=== PATIENT | female | born 1960 | race Caucasian/White ===

== ENCOUNTER 2016-09-21 10:46 | Emergency (ER) | payer MEDICARE, OTHER ==
[2016-09-21 10:51] VITALS: RESP 17
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
[2016-09-21] MEDS ORDERED: ACETAMINOPHEN TAB 500 MG TAB PO STA (12:19)
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
[2016-09-21 12:51] VITALS: BP 147/84; PULSE 78; TEMP 97.7
== END 2016-09-21 12:50 | disposition home or self-care (01) ==
LOC: EC 10:46
DX: S09.90XA Unspecified injury of head, initial encounter (principal); Z79.82 Long term (current) use of aspirin; Z88.5 Allergy status to narcotic agent; W20.8XXA Other cause of strike by thrown, projected or falling object, initial encounter; Y93.55 Activity, bike riding
CPT/HCPCS: 70450; 99283

== ENCOUNTER → 2016-10-10 | Outpatient (CLI) | payer MEDICARE, OTHER ==
--- NOTE | 2016-10-11 07:19 | XR ---
EXAMINATION TYPE: XR cervical spine comp , 5 VIEWS DATE OF EXAM ORDERED: 10/10/2016 HISTORY: M54.2 Cervical spine pain. COMPARISON: None. FINDINGS: Vertebral body height and alignment are maintained. Atlantoaxial relationships are normal. There is disc space loss and hypertrophic spondylosis at C4-5, C5-6 and C6-7. There is mild uncovert ebral joint disease present at these levels. Intervertebral foramina are reasonably well-maintained. Prevertebral soft tissues are normal. IMPRESSION: 1. NO ACUTE OSSEOUS LESION. 2. DEGENERATIVE CHANGE.
--- NOTE | 2016-10-11 07:39 | XR ---
Right RIBS HISTORY: Rib pain, R07.9 4 views of the right ribs No comparisons Bone mineralization is maintained. No pneumothorax or pleural effusion. Somewhat truncated appearance of the distal 12th rib could be indicative of a fracture. No other evident displaced rib fracture. IMPRESSION: Difficult to exclude distal 12th rib fracture. Bone scan could be performed for increased sensitivity as.
== END | disposition home or self-care (01) ==
LOC: RADXRMAIN 16:23
PROVIDERS: ATTEND Family Medicine
DX: M47.812 Spondylosis without myelopathy or radiculopathy, cervical region (principal); R07.9 Chest pain, unspecified
CPT/HCPCS: 72050

== ENCOUNTER → 2017-03-23 | Outpatient (CLI) | payer MEDICARE, OTHER ==
--- NOTE | 2017-03-23 13:42 | MM ---
Reason for exam: additional evaluation requested from prior study. Last mammogram was performed 1 year and 5 months ago. History: Patient is postmenopausal and is nulliparous. Physical Findings: Nurse did not find any significant physical abnormalities on exam. MG 3D Diag Mammo W/Cad CHATO Bilateral CC and MLO view(s) were taken. Prior study comparison: October 14, 2015, left breast MG 3d work up w/cad LT. October 06, 2015, bilateral MG 3d screening mammo w/cad. There are scattered fibroglandular densities. There is no discrete abnormality including area of concern. No significant new findings when compared with previous films. These results were verbally communicated with the patient and result sheet given to the patient on 03/23/17. ASSESSMENT: Negative, BI-RAD 1 RECOMMENDATION: Routine screening mammogram of both breasts in 1 year.
== END | disposition home or self-care (01) ==
LOC: RADMAMWWP 12:30
PROVIDERS: ATTEND Family Medicine
DX: R92.8 Other abnormal and inconclusive findings on diagnostic imaging of breast (principal)
CPT/HCPCS: 77066; G0279

== ENCOUNTER → 2017-05-10 | Outpatient (CLI) | payer MEDICARE, OTHER ==
--- NOTE | 2017-05-11 07:05 | US ---
EXAMINATION TYPE: US kidneys/renal and bladder DATE OF EXAM: 05/10/2017 COMPARISON: NONE CLINICAL HISTORY: Cystic Kidney Disease Q61.9. EXAM MEASUREMENTS: Right Kidney: 9.1 x 3.5 x 4.6 cm Left Kidney: 9.9 x 4.5 x5.6 cm Post Void Residual Volume: 5.3 mL Right Kidney: No hydronephrosis or masses seen Left Kidney: No hydronephrosis or masses seen Bladder: wnl Bilateral Jets seen: Yes Normal Post Void Residual: Yes There is no evidence for hydronephrosis at this point in time. No nephrolithiasis is seen. No akash s are identified. The urinary bladder is anechoic. Bilateral ureteral jets are seen. IMPRESSION: Unremarkable exam with no solid or cystic renal mass is identified. No hydronephrosis or nephrolithia sis.
== END | disposition home or self-care (01) ==
LOC: RADUSWWP 16:30
PROVIDERS: ATTEND Family Medicine
DX: Q31.9 Congenital malformation of larynx, unspecified (principal)
CPT/HCPCS: 76770

== ENCOUNTER → 2018-05-16 | Outpatient (CLI) | payer MEDICARE, OTHER ==
--- NOTE | 2018-05-16 15:41 | XR ---
EXAMINATION TYPE: XR nasal bone DATE OF EXAM: 05/16/2018 COMPARISON: NONE HISTORY: Pain TECHNIQUE: 3 views are submitted FINDINGS: There is mucosal thickening involving the maxillary sinuses. Nasal bridge intact. Ethmoidal plate appears intact. Maxillary styloid intact. IMPRESSION: No evidence to suggest fracture. Changes of chronic sinusitis noted.
== END | disposition home or self-care (01) ==
LOC: RADXRMAIN 14:46
PROVIDERS: ATTEND Family Medicine
DX: J32.9 Chronic sinusitis, unspecified (principal)
CPT/HCPCS: 70160

== ENCOUNTER → 2020-02-05 | Outpatient (CLI) | payer MEDICARE, OTHER ==
--- NOTE | 2020-02-06 11:58 | ECHOF ---
Referral Reason:R94.31 abnormal EKG MEASUREMENTS -------- HEIGHT: 160.0 cm WEIGHT: 103.0 kg BP: RVIDd: 2.0 cm (< 3.3) IVSd: 1.3 cm (0.6 - 1.1) LVIDd: 3.8 cm (3.9 - 5.3) LVPWd: 1.1 cm (0.6 - 1.1) IVSs: 1.4 cm LVIDs: 2.8 cm LVPWs: 1.4 cm LA Diam: 3.4 cm (2.7 - 3.8) Ao Diam: 3.1 cm (2.0 - 3.7) AV Cusp: 2.4 cm (1.5 - 2.6) MV EXCURSION: 13.536 mm (> 18.000) MV EF SLOPE: 71 mm/s (70 - 150) EPSS: 0.3 cm MV E Mundo: 0.62 m/s MV DecT: 188 ms MV A Mundo: 1.00 m/s MV E/A Ratio: 0.61 RAP: 5.00 mmHg RVSP: 18.28 mmHg FINDINGS -------- Sinus rhythm. This was a technically adequate study. The left ventricular size is normal. There is mild concentric left ventricular hypertrophy. Overa ll left ventricular systolic function is low-normal with, an EF between 50 - 55 %. The right ventricle is normal in size. The left atrial size is normal. The right atrial size is normal. There is mild aortic valve sclerosis. There is no evidence of aortic regurgitation. Mild mitral annular calcification present. Mild mitral regurgitation is present. Mild tricuspid regurgitation present. Right ventricular systolic pressure is normal at < 35 mmHg. There is no pulmonic regurgitation present. The aortic root size is normal. Echo free space represents a pericardial fat pad. CONCLUSIONS -------- 1. The left ventricular size is normal. 2. There is mild concentric left ventricular hypertrophy. 3. Overall left ventricular systolic function is low-normal with, an EF between 50 - 55 %. 4. The right ventricle is normal in size. 5. The left atrial size is normal. 6. The right atrial size is normal. 7. There is mild aortic valve sclerosis. 8. Mild mitral annular calcification present. 9. Mild mitral regurgitation is present. 10. Mild tricuspid regurgitation present. 11. There is no pulmonic regurgitation present. 12. The aortic root size is normal. 13. Echo free space represents a pericardial fat pad. NEGATIVE CUTTER: Sharonda Ram RDCS
== END | disposition home or self-care (01) ==
LOC: RADECHMAIN 13:38
PROVIDERS: ATTEND Family Medicine
DX: I08.1 Rheumatic disorders of both mitral and tricuspid valves (principal)
CPT/HCPCS: 93306

== ENCOUNTER → 2022-11-01 | Outpatient (CLI) | payer MEDICARE, OTHER ==
--- NOTE | 2022-11-02 07:23 | MM ---
Reason for Exam: Screening (asymptomatic). Last mammogram was performed 5 year(s) and 7 month(s) ago. Patient History: Menarche at age 11. Patient has no children. Postmenopausal. Risk Values: Leena 5 year model risk: 1.7%. NCI Lifetime model risk: 7.4%. Prior Study Comparison: 10/06/2015 Bilateral Screening Mammogram, [facility]. 10/14/2015 Left Diagnostic Mammogram, [facility]. 03/23/2017 Bilateral Diagnostic Mammogram, [facility]. Tissue Density: There are scattered fibroglandular densities. Findings: Analyzed By CAD. There is no suspicious group of microcalcifications or new suspicious mass in either breast. Overall Assessment: Negative, BI-RAD 1 Management: Screening Mammogram of both breasts in [address] [facility] will attempt to contact patient to return for supplemental views and ultrasound if indicated. Patient should continue monthly self-breast exams. A clinical breast exam by your physician is recommended on an annual basis. This exam should not preclude additional follow-up of suspicious palpable abnormalities. Note on Leena scores and lifetime risk: 1. A Leena score greater than 3% is considered moderate risk. If this is the case, consider specialist referral to assess eligibility for a risk reducing agent. 2. If overall lifetime risk for the development of breast cancer is 20% or higher, the patient may qualify for future screening with alternating mammogram and breast MRI. Electronically signed and approved by: Jameson Agarwal DO
== END | disposition home or self-care (01) ==
LOC: RADMAMWWP 14:02
PROVIDERS: ATTEND Family Medicine
DX: Z12.31 Encounter for screening mammogram for malignant neoplasm of breast (principal); Z78.0 Asymptomatic menopausal state
CPT/HCPCS: 77063; 77067

== ENCOUNTER 2024-06-18 16:29 | Emergency (ER) | payer MEDICARE, OTHER ==
[2024-06-18 17:19] LABS: Basophils % (A) 1 %; Eosinophils # (A) 0.2 k/uL (0-0.7); Eosinophils % (A) 2 %; HCT 46.2 % (34.0-46.0); HGB 14.9 gm/dL (11.4-16.0); Lymphocytes # (A) 2.1 k/uL (1.0-4.8); Lymphocytes % (A) 34 %; MCH 29.7 pg (25.0-35.0); MCHC 32.2 g/dL (31.0-37.0); MCV 92.1 fL (80.0-100.0); Mean Platelet Volume 7.5; Monocytes # (A) 0.6 k/uL (0-1.0); Monocytes % (A) 9 %; Neutrophils # (A) 3.3 k/uL (1.3-7.7); Neutrophils % (A) 52 %; Platelet Count 321 k/uL (150-450); RBC 5.02 m/uL (3.80-5.40); RDW 13.2 % (11.5-15.5); WBC 6.4 k/uL (3.8-10.6)
[2024-06-18] MEDS: SODIUM CHLORIDE 0.9% 1,000 ML IV STA (17:21)
[2024-06-18 17:31] LABS: ALT 19 U/L (4-34); AST 20 U/L (14-36); African American GFR (CKD) 65 (>60 ml/min/1.73 sqM); Alkaline Phosphatase 79 U/L (38-126); Anion Gap 9 mmol/L; Blood Urea Nitrogen 16 mg/dL (7-17); Carbon Dioxide 23 mmol/L (22-30); Chloride 105 mmol/L (98-107); Creatine Kinase 51 U/L (30-135); Glucose 112 mg/dL (74-99); Non-African American GFR(CKD) 57 (>60 ml/min/1.73 sqM); Potassium 4.1 mmol/L (3.5-5.1); Sodium 137 mmol/L (137-145); Total Bilirubin 0.5 mg/dL (0.2-1.3); Total Protein 6.9 g/dL (6.3-8.2)
--- NOTE | 2024-06-18 18:36 | CT ---
EXAMINATION TYPE: CT brain wo con DATE OF EXAM: 06/18/2024 COMPARISON: CT brain September 21, 2016 CLINICAL INDICATION: Female, 64 years old with history of Neuro deficit, acute, stroke suspected, Per EMS pt called with c/o speech impairment. Pt states that she had speech difficulty x30 minutes at [facility] before she was able to call 911. Pt denies SOB, chest pains or any weakness. TECHNIQUE: CT scan of the head is performed without contrast. CT DLP: 1130 mGycm. Automated Exposure Control for Dose Reduction was Utilized. FINDINGS: There is 2.5 x 1.6 cm oval hyperdense area in the periphery near the right frontoparietal j unction coronal image 36. There is some hypodensity in the surrounding tissue extending medially and posteriorly. Local mass effect is present. No midline shift. No hydrocephalus. Soft tissue density consistent with cerumen is redemonstrated in bilateral external auditory canals there are 2 small muc ous retention cysts or polyps in the bilateral maxillary sinuses measuring up to 11 mm. The globes ar e intact bilaterally. IMPRESSION: There is 2.5 cm area of acute hemorrhage or hemorrhagic mass in the peripheral posterior aspect right frontal lobe. Clinical correlation and short-term follow-up imaging is advised to [facility] evaluate. Critical results communicated to ordering emergency room physician by phone call at time of dictation . [facility], , 06/18/2024 6:34 PM
--- NOTE | 2024-06-18 18:54 | XR ---
EXAMINATION TYPE: XR chest 2V DATE OF EXAM: 06/18/2024 CLINICAL INDICATION: Female, 64 years old with history of altered mental status, TECHNIQUE: Frontal and lateral views of the chest are obtained. COMPARISON: None FINDINGS: There is no focal air space opacity, pleural effusion, or pneumothorax seen. The cardiac silhouette size is mildly enlarged. Overlying EKG leads are present. Multilevel spurring in the thora cic spine is seen. IMPRESSION: Mild cardiomegaly without acute pulmonary process. [facility], , 06/18/2024 6:51 PM
--- NOTE | 2024-06-18 19:03 | CT ---
EXAMINATION TYPE: CT angio head neck DATE OF EXAM: 06/18/2024 COMPARISON: NONE CLINICAL INDICATION: Female, 64 years old with history of Neuro deficit, acute, stroke suspected, Per EMS pt called with c/o speech impairment. Pt states that she had speech difficulty x30 minutes at [facility] before she was able to call 911. Pt denies SOB, chest pains or any weakness., TECHNIQUE: CTA scan of the head and neck is performed with IV Contrast, patient injected with 65 ml mL of Isovue 370, axial images are obtained, coronal and sagittal reformatted images are reviewed. 3D reconstructed images are created on an independent workstation and reviewed. NASCET criteria was use d in interpretation of this exam? CT DLP: 469.1 mGycm. Automated Exposure Control for Dose Reduction was Utilized. FINDINGS: Vertebral arteries: The vertebral arteries are patent. Vertebral artery dominance: Codominant Basilar artery: The basilar artery is intact. Hypoplastic left P1 segment with filling of the P2 segm ent due to patent left-sided posterior commuting artery. Internal Carotid arteries: The cervical, petrous, cavernous and supraclinoid segments are normal. DORETHA: Hypoplastic left A1 segment filling of the left A2 segment due to patent anterior communicating artery. ACOM: Present without evidence of aneurysm. MCA: Patent with no evidence of aneurysm. Dural sinuses: Patent. CTA NECK: Right Carotid System: The common carotid artery and external carotid artery are patent. The carotid bifurcation demonstrate s no evidence of hemodynamically significant stenosis. The remaining portions of the internal carotid artery demonstrate normal size without significant narrowing. Left Carotid System: The common carotid artery and external carotid artery are patent. The carotid bifurcation demonstrate s no evidence of hemodynamically significant stenosis. The remaining portions of the internal carotid artery demonstrate normal size without significant narrowing. Vertebral arteries are patent without evidence hemodynamically significant stenosis. There is a three-vessel aortic arch. The origins of the great vessels are patent. No evidence of hemo dynamically significant stenosis. Large anterior osteophytes including bridging osteophytes at C5-C6 level are noted. There are small h ypodense thyroid nodules bilaterally. Advise nonemergent thyroid ultrasound to further evaluate if th is is not known finding. IMPRESSION: No evidence of dissection of the cervical internal carotid arteries or vertebral arteries. No any evidence of significant stenosis at the carotid bifurcations. No evidence of large vessel occlusion or intracranial aneurysm. [facility], , 06/18/2024 7:01 PM
--- NOTE | 2024-06-18 19:34 | ED ---
General Adult HPI - General Chief complaint: Neuro Symptoms/Deficit Stated complaint: syncope Time Seen by Provider: 06/18/24 16:40 Source: patient, EMS Mode of arrival: EMS Limitations: no limitations - History of Present Illness Initial comments: 64-year-old female with past medical history of TIA in 2010 who presents to the emergency department reporting expressive aphasia. States that she was at home when she had approximately 30 minutes of difficulty speaking. She then called EMS and before their arrival her speech had resolved. She denies having any weakness, numbness or tingling in her extremities. No visual disturbance. Randy es any headaches. No numbness, tingling or weakness in her extremities. No report of any trauma. Patient does not take any blood thinners. Patient arrives to the hospital and feels back to her baseline. She denies any chest pain, abdominal pain. No changes in her bowel or bladder habits. No other alleviating, precipitating or modifying factors - Related Data Home Medications Medication Instructions Recorded Confirmed Aspirin [Adult Low Dose Aspirin EC] 81 mg PO HS 07/22/15 07/22/15 Previous Rx's Medication Instructions Recorded Amoxicillin/Potassium Clav 1 each PO Q12HR #20 tab 07/22/15 [Augmentin 875-125 Tablet] Ciprofloxacin-Hc Otic Susp [Cipro 3 drops LEFT EAR BID 10 Days ml 07/22/15 Hc Otic Suspension] Acetaminophen Tab [Tylenol Tab] 650 mg PO Q6H #20 tablet 09/21/16 Allergies Allergy/AdvReac Type Severity Reaction Status Date / Time codeine AdvReac Rapid Verified 06/18/24 16:40 Heart Rate Review of Systems ROS Statement: Those systems with pertinent positive or pertinent negative responses have been documented in the HPI. ROS Other: All systems not noted in ROS Statement are negative. Past Medical History Past Medical History: CVA/TIA Additional Past Medical History / Comment(s): TIA 2010 History of Any Multi-Drug Resistant Organisms: None Reported Past Surgical History: No Surgical Hx Reported Past Psychological History: No Psychological Hx Reported Smoking Status: Never smoker Past Alcohol Use History: None Reported Past Drug Use History: None Reported General Exam Limitations: no limitations General appearance: alert, in no apparent distress Head exam: Present: atraumatic, normocephalic, normal inspection Eye exam: Present: normal appearance, PERRL, EOMI. Absent: scleral icterus, conjunctival injection, periorbital swelling ENT exam: Present: normal exam, mucous membranes moist Neck exam: Present: normal inspection. Absent: tenderness, meningismus, lymphadenopathy Respiratory exam: Present: normal lung sounds bilaterally. Absent: respiratory distress, wheezes, rales, rhonchi, stridor Cardiovascular Exam: Present: regular rate, normal rhythm, normal heart sounds. Absent: systolic murmur, diastolic murmur, rubs, gallop, clicks GI/Abdominal exam: Present: soft, normal bowel sounds. Absent: distended, tenderness, guarding, rebound, rigid Extremities exam: Present: normal inspection, full ROM, normal capillary refill. Absent: tenderness, pedal edema, joint swelling, calf tenderness Back exam: Present: normal inspection Neurological exam: Present: alert, oriented X3, CN II-XII intact Psychiatric exam: Present: normal affect, normal mood Skin exam: Present: warm, dry, intact, normal color. Absent: rash Course Vital Signs 06/18/24 06/18/24 06/18/24 16:36 17:19 18:35 Temperature 98.6 F Pulse Rate 76 64 80 Respiratory 19 20 20 Rate Blood Pressure 162/85 171/83 149/74 O2 Sat by Pulse 97 98 97 Oximetry 06/18/24 20:00 Temperature Pulse Rate 98 Respiratory 18 Rate Blood Pressure 155/73 O2 Sat by Pulse 96 Oximetry Medical Decision Making - Medical Decision Making Was pt. sent in by a medical professional or institution (EMILEE Woodall, FLY RAIL OPERATOR, urgent care, hospital, or fci...) When possible be specific @ -No Did you speak to anyone other than the patient for history (EMS, parent, family, police, friend...)? What history was obtained from this source @ -With EMS for history Did you review nursing and triage notes (agree or disagree)? Why? @ -I reviewed and agree with nursing and triage notes Were old charts reviewed (outside hosp., previous admission, EMS record, old EKG, old radiological studies, urgent care reports/EKG's, fci records)? Report findings @ -No old charts were reviewed Differential Diagnosis (chest pain, altered mental status, abdominal pain women, abdominal pain men, vaginal bleeding, weakness, fever, dyspnea, syncope, headache, dizziness, GI bleed, back pain, seizure, CVA, palpatations, mental health, musculoskeletal)? @ -Differential CVA Ischemic stroke, hemorrhagic stroke, brain tumor, atypical migraine, Wernicke's encephalopathy, seizure, multiple sclerosis, meningitis, encephalitis, hypoglycemia, Guillain-Gallegos, electrolytes disturbance, myasthenia gravis.... This is not meant to be an all-inclusive list EKG interpreted by me (3pts min.). @ -yes and demonstrates sinus rhythm with rate of 71. [place] interval 160. QRS 108. QTc of 412. No acute ST segment elevations or depressions X-rays interpreted by me (1pt min.). @ -yes and demonstrates cardiomegaly CT interpreted by me (1pt min.). @ -Yes and demonstrates a 2.5 cm area of acute hemorrhage or hemorrhagic mass in the peripheral posterior aspect right frontal lobe U/S interpreted by me (1pt. min.). @ -None done What testing was considered but not performed or refused? (CT, X-rays, U/S, labs)? Why? @ -None What meds were considered but not given or refused? Why? @ -None Did you discuss the management of the patient with other professionals (professionals i.e. , PA, FLY RAIL OPERATOR, lab, RT, psych nurse, hospice social worker, uniform room attendant, teacher, aircraft electronics technical officer, pillowcase sewer)? Give summary @ -Spoke with Dr. Galdamez at [facility] who does accept the patient as a transfer Was smoking cessation discussed for >3mins.? @ -No Was critical care preformed (if so, how long)? @ -yes, 35 minutes for identification of hemorrhagic mass Were there social determinants of health that impacted care today? How? (Homelessness, low income, unemployed, alcoholism, drug addiction, t ransportation, low edu. Level, literacy, decrease access to med. care, halfway, rehab)? @ -No Was there de-escalation of care discussed even if they declined (Discuss DNR or withdrawal of care, Hospice)? DNR status @ -No What co-morbidities impacted this encounter? (DM, HTN, Smoking, COPD, CAD, Cance r, CVA, ARF, Chemo, Hep., AIDS, mental health diagnosis, sleep apnea, morbid obesity)? @ -TIA Was patient admitted / discharged? Hospital course, mention meds given and route, prescriptions, significant lab abnormalities, going to OR and other pertinent info. @ -Upon arrival patient seen and evaluated in room 18. Thorough history and physical exam was performed. Patient reports that she is back to her baseline at this time with no acute deficits. IV was established and laboratory studies are conducted. Patient is sent for CT and CTA of her brain. I do speak with the radiologist. CT does demonstrate a 2.5 cm hemorrhagic mass. This is discussed with the patient. Informed her of the need for transfer. Patient was adamant that she wanted to go home and did not want to be transferred tonight. She is made aware that there is significant risk of permanent disability and even without transfer and further evaluation. I was able to speak with the patient's adoptive sister, brother and primary care physician. After speaking with these people she was agreeable to being transferred. We did contact [facility] for transfer. I did receive a call back from Dr. Galdamez who does accept the patient as a transfer. I did initiate a small amount of Cardene as the patient does have slight hypertension here in the emergency department. Goal blood pressure would be less than 140. Patient does sign COBRA forms. She will be transferred to the emergency department at [facility] in stable condition with a guarded prognosis Undiagnosed new problem with uncertain prognosis? @ -No Drug Therapy requiring intensive monitoring for toxicity (Heparin, Nitro, Insulin, Cardizem)? @ -Cardene Were any procedures done? @ -No Diagnosis/symptom? @ -Acute expressive aphasiaresolved, acute hemorrhagic bleed versus hemorrhagic mass right frontal lobe Acute, or Chronic, or Acute on Chronic? @ -Acute Uncomplicated (without systemic symptoms) or Complicated (systemic symptoms)? @ -Complicated Side effects of treatment? @ -No Exacerbation, Progression, or Severe Exacerbation? @ -No Poses a threat to life or bodily function? How? (Chest pain, USA, CT, pneumonia, PE, COPD, DKA, ARF, appy, cholecystitis, CVA, Diverticulitis, Homicidal, Suicidal, threat to staff... and all critical care pts) @ -Yes as patient does have an intracranial bleed - Lab Data Result diagrams: 06/18/24 16:52 06/18/24 16:52 Lab Results 06/18/24 06/18/24 06/18/24 Range/Units 16:52 16:52 16:52 WBC 6.4 (3.8-10.6) k/uL RBC 5.02 (3.80-5.40) m/uL Hgb 14.9 (11.4-16.0) gm/dL Hct 46.2 H (34.0-46.0) % MCV 92.1 (80.0-100.0) fL MCH 29.7 (25.0-35.0) pg MCHC 32.2 (31.0-37.0) g/dL RDW 13.2 (11.5-15.5) % Plt Count 321 (150-450) k/uL MPV 7.5 Neutrophils % 52 % Lymphocytes % 34 % Monocytes % 9 % Eosinophils % 2 % Basophils % 1 % Neutrophils # 3.3 (1.3-7.7) k/uL Lymphocytes # 2.1 (1.0-4.8) k/uL Monocytes # 0.6 (0-1.0) k/uL Eosinophils # 0.2 (0-0.7) k/uL Basophils # 0.0 (0-0.2) k/uL Sodium 137 (137-145) mmol/L Potassium 4.1 (3.5-5.1) mmol/L Chloride 105 (98-107) mmol/L Carbon Dioxide 23 (22-30) mmol/L Anion Gap 9 mmol/L BUN 16 (7-17) mg/dL Creatinine 1.04 (0.52-1.04) mg/dL Est GFR (CKD-EPI)AfAm 65 (>60 ml/min/1.73 sqM) Est GFR (CKD-EPI)NonAf 57 (>60 ml/min/1.73 sqM) Glucose 112 H (74-99) mg/dL Calcium 9.0 (8.4-10.2) mg/dL Total Bilirubin 0.5 (0.2-1.3) mg/dL AST 20 (14-36) U/L ALT 19 (4-34) U/L Alkaline Phosphatase 79 (38-126) U/L Creatine Kinase 51 (30-135) U/L Troponin I 0.019 (0.000-0.034) ng/mL Total Protein 6.9 (6.3-8.2) g/dL Albumin 4.0 (3.5-5.0) g/dL Disposition Clinical Impression: Intracranial hemorrhage, Brain mass, Expressive aphasia Disposition: OTHER INSTITUTION NOT DEFINED Condition: Serious Is patient prescribed a controlled substance at d/c from ED?: No Referrals: Everette Moreno MD [Primary Care Provider] - 1-2 days Time of Disposition: 20:15 - Out of Hospital Transfer - Req. Specs Out of Hospital Transfer - Requested Specifics: Other Emergency Center ([facility])
[2024-06-18 20:02] VITALS: RESP 18
[2024-06-18] MEDS: niCARdipine 20 MG in SODIUM CHLORIDE 0.9% 192 ML IV SCH (20:07)
[2024-06-18 20:41] VITALS: BP 141/73; PULSE 105; TEMP 98.7
== END 2024-06-18 20:39 | disposition other institution (70) ==
LOC: EC 16:29
DX: I62.9 Nontraumatic intracranial hemorrhage, unspecified (principal); G93.9 Disorder of brain, unspecified; R47.01 Aphasia; Z86.73 Personal history of transient ischemic attack (TIA), and cerebral infarction without residual deficits; Z88.5 Allergy status to narcotic agent
CPT/HCPCS: 36415; 93005; 80053; 82550; 84484; 85025; 71046; 70496; 70450; 70498; 99285; 96365; 96361; Q9967

== ENCOUNTER 2024-07-01 18:14 | Emergency (ER) | payer MEDICARE, OTHER ==
[2024-07-01 21:11] LABS: Basophils # (A) 0.06 10*3/uL (0.00-0.10); Eosinophils # (A) 0.07 10*3/uL (0.04-0.35); Eosinophils % (A) 1.2 %; HCT 43.5 % (37.2-46.3); HGB 15.1 g/dL (12.0-15.0); Lymphocytes # (A) 1.71 10*3/uL (0.90-5.00); Lymphocytes % (A) 28.4 %; MCH 30.8 pg (27.0-32.0); MCHC 34.7 g/dL (32.0-37.0); MCV 88.6 fL (80.0-97.0); Mean Platelet Volume 9.7 fL (9.5-12.2); Monocytes # (A) 0.66 10*3/uL (0.20-1.00); Monocytes % (A) 10.9 %; Neutrophils # (A) 3.52 10*3/uL (1.80-7.70); Neutrophils % (A) 58.3 %; Platelet Count 347 10*3/uL (140-440); RBC 4.91 10*6/uL (4.10-5.20); RDW 12.9 % (11.5-14.5); WBC 6.03 10*3/uL (4.50-10.00)
[2024-07-01 21:21] LABS: ALT 20 U/L (4-34); AST 20 U/L (14-36); African American GFR (CKD) >90 (>60 ml/min/1.73 sqM); Albumin 4.3 g/dL (3.5-5.0); Alkaline Phosphatase 80 U/L (38-126); Anion Gap 13 mmol/L; Blood Urea Nitrogen 11 mg/dL (7-17); Carbon Dioxide 22 mmol/L (22-30); Chloride 102 mmol/L (98-107); Glucose 112 mg/dL (74-99); Non-African American GFR(CKD) 81 (>60 ml/min/1.73 sqM); Potassium 3.8 mmol/L (3.5-5.1); Sodium 137 mmol/L (137-145); Total Bilirubin 0.6 mg/dL (0.2-1.3); Total Protein 7.2 g/dL (6.3-8.2)
--- NOTE | 2024-07-01 21:29 | ED ---
General Adult HPI - General Chief complaint: Recheck/Abnormal Lab/Rx Stated complaint: Hypertension Time Seen by Provider: 07/01/24 18:30 Source: patient, EMS Mode of arrival: EMS - History of Present Illness Initial comments: 64-year-old female with past medical history of hypertension who presents to the emergency department reporting hypertension. Patient states that she takes her blood pressure daily. She was at home today when her blood pressure was running high. She does have a history of a brain bleed on June 18 which she states was due to high blood pressure. Patient was seen in our emergency department and transferred on [facility]. She was started on 2 antihypertensive medications as well as Keppra. States that she has been taking them and typically her blood pressure has been well-controlled. She denies any symptoms of high blood pressure to include headache or visual changes. She does not take anything to improve her blood pressure. No other alleviating, precipitating or modifying factors - Related Data Home Medications Medication Instructions Recorded Confirmed Ergocalciferol [Vitamin D2 (1250 1,250 mcg PO LAL 07/01/24 07/01/24 Mcg = 06869 Iu)] Fluticasone/Umeclidin/Vilanter 1 puff INHALATION RT-DAILY 07/01/24 07/01/24 [Trelegy Ellipta 200-62.5-25] Losartan [Cozaar] 50 mg PO DAILY 07/01/24 07/01/24 hydroCHLOROthiazide [Hydrodiuril] 25 mg PO DAILY 07/01/24 07/01/24 levETIRAcetam [Keppra] 500 mg PO BID 07/01/24 07/01/24 Allergies Allergy/AdvReac Type Severity Reaction Status Date / Time codeine AdvReac Rapid Verified 07/04/24 12:10 Heart Rate/Dizzy/Headache Review of Systems ROS Statement: Those systems with pertinent positive or pertinent negative responses have been documented in the HPI. ROS Other: All systems not noted in ROS Statement are negative. Past Medical History Past Medical History: CVA/TIA Additional Past Medical History / Comment(s): TIA 2010, brain bleed June 18 History of Any Multi-Drug Resistant Organisms: None Reported Past Surgical History: No Surgical Hx Reported Past Psychological History: No Psychological Hx Reported Smoking Status: Never smoker Past Alcohol Use History: None Reported Past Drug Use History: None Reported General Exam General appearance: alert, in no apparent distress Head exam: Present: atraumatic, normocephalic, normal inspection Eye exam: Present: normal appearance, PERRL, EOMI. Absent: scleral icterus, conjunctival injection, periorbital swelling ENT exam: Present: normal exam, mucous membranes moist Neck exam: Present: normal inspection. Absent: tenderness, meningismus, lymphadenopathy Respiratory exam: Present: normal lung sounds bilaterally. Absent: respiratory distress, wheezes, rales, rhonchi, stridor Cardiovascular Exam: Present: regular rate, normal rhythm, normal heart sounds. Absent: systolic murmur, diastolic murmur, rubs, gallop, clicks GI/Abdominal exam: Present: soft, normal bowel sounds. Absent: distended, tenderness, guarding, rebound, rigid Extremities exam: Present: normal inspection, full ROM, normal capillary refill. Absent: tenderness, pedal edema, joint swelling, calf tenderness Back exam: Present: normal inspection Neurological exam: Present: alert, oriented X3, CN II-XII intact Psychiatric exam: Present: normal affect, normal mood Skin exam: Present: warm, dry, intact, normal color. Absent: rash Course Vital Signs 07/01/24 07/01/24 07/01/24 18:14 19:40 20:58 Temperature 97.9 F Pulse Rate 87 71 72 Respiratory 18 16 Rate Blood Pressure 148/77 143/72 134/72 O2 Sat by Pulse 96 98 97 Oximetry 07/01/24 07/01/24 22:00 22:06 Temperature 97.4 F L Pulse Rate 77 78 Respiratory 18 18 Rate Blood Pressure 131/64 129/67 O2 Sat by Pulse 97 97 Oximetry Medical Decision Making - Medical Decision Making Was pt. sent in by a medical professional or institution (, PA, TEAR DOWN WORKER, urgent care, hospital, or usp...) When possible be specific @ -No Did you speak to anyone other than the patient for history (EMS, parent, family, police, friend...)? What history was obtained from this source @ -No Did you review nursing and triage notes (agree or disagree)? Why? @ -I reviewed and agree with nursing and triage notes Were old charts reviewed (outside hosp., previous admission, EMS record, old EKG, old radiological studies, urgent care reports/EKG's, usp records)? Report findings @ -I reviewed the emergency room note from June 18 where patient was seen for an intracranial hemorrhage Differential Diagnosis (chest pain, altered mental status, abdominal pain women, abdominal pain men, vaginal bleeding, weakness, fever, dyspnea, syncope, headache, dizziness, GI bleed, back pain, seizure, CVA, palpatations, mental health, musculoskeletal)? @ -Hypertension, medication misuse, intraparenchymal hemorrhage, stroke EKG interpreted by me (3pts min.). @ -Yes and demonstrates sinus rhythm with a rate of 73. [place] interval 149. QRS 102. QTc of 406. No acute ST segment elevations or depressions X-rays interpreted by me (1pt min.). @ -None done CT interpreted by me (1pt min.). @ -None done U/S interpreted by me (1pt. min.). @ -None done What testing was considered but not performed or refused? (CT, X-rays, U/S, labs)? Why? @ -CT the brain was considered however patient has no symptoms of headache, neurologic deficit What meds were considered but not given or refused? Why? @ -None Did you discuss the management of the patient with other professionals (professionals i.e. , PA, TEAR DOWN WORKER, lab, RT, psych nurse, manager social, peoplesoft hr developer, teacher, u.s. revenue officer, family service caseworker)? Give summary @ -No Was smoking cessation discussed for >3mins.? @ -No Was critical care preformed (if so, how long)? @ -No Were there social determinants of health that impacted care today? How? (Homelessness, low income, unemployed, alcoholism, drug addiction, transportation, low edu. Level, literacy, decrease access to med. care, usp, rehab)? @ -No Was there de-escalation of care discussed even if they declined (Discuss DNR or withdrawal of care, Hospice)? DNR status @ -No What co-morbidities impacted this encounter? (DM, HTN, Smoking, COPD, CAD, Cancer, CVA, ARF, Chemo, Hep., AIDS, mental health diagnosis, sleep apnea, morbid obesity)? @ -Hypertension with intracranial hemorrhage Was patient admitted / discharged? Hospital course, mention meds given and route, prescriptions, significant lab abnormalities, going to OR and other pertinent info. @ -Upon arrival patient seen and evaluated in bed 27. Thorough history and physical exam was performed. Patient complains of high blood pressure without symptoms. We did hook her to the desk monitor. She is watched for several hours and does have improvement in her blood pressure without any intervention. She has no symptoms. Laboratory studies are within normal limits. Patient feels comfortable going home at this time. Instructed to follow-up with her neurosurgeon at her scheduled appointment and return for any new or worsening symptoms. Patient agreeable plan she was discharged in stable condition Undiagnosed new problem with uncertain prognosis? @ -No Drug Therapy requiring intensive monitoring for toxicity (Heparin, Nitro, Insulin, Cardizem)? @ -No Were any procedures done? @ -No Diagnosis/symptom? @ -Accelerated hypertension, history of intracranial hemorrhage Acute, or Chronic, or Acute on Chronic? @ -Acute Uncomplicated (without systemic symptoms) or Complicated (systemic symptoms)? @ -Complicated Side effects of treatment? @ -No Exacerbation, Progression, or Severe Exacerbation? @ -No Poses a threat to life or bodily function? How? (Chest pain, USA, [place], pneumonia, PE, COPD, DKA, ARF, appy, cholecystitis, CVA, Diverticulitis, Homicidal, Suicidal, threat to staff... and all critical care pts) @ -No - Lab Data Result diagrams: 07/01/24 20:57 07/01/24 20:57 Lab Results 07/01/24 07/01/24 Range/Units 20:57 20:57 WBC 6.03 (4.50-10.00) 10*3/uL RBC 4.91 (4.10-5.20) 10*6/uL Hgb 15.1 H (12.0-15.0) g/dL Hct 43.5 (37.2-46.3) % MCV 88.6 (80.0-97.0) fL MCH 30.8 (27.0-32.0) pg MCHC 34.7 (32.0-37.0) g/dL Plt Count 347 (140-440) 10*3/uL MPV 9.7 (9.5-12.2) fL Immature Gran % (Auto) 0.2 % Neutrophils % 58.3 % Lymphocytes % 28.4 % Monocytes % 10.9 % Eosinophils % 1.2 % Basophils % 1.0 % Immature Gran # 0.01 (0.00-0.04) 10*3/uL Neutrophils # 3.52 (1.80-7.70) 10*3/uL Lymphocytes # 1.71 (0.90-5.00) 10*3/uL Monocytes # 0.66 (0.20-1.00) 10*3/uL Eosinophils # 0.07 (0.04-0.35) 10*3/uL Basophils # 0.06 (0.00-0.10) 10*3/uL Sodium 137 (137-145) mmol/L Potassium 3.8 (3.5-5.1) mmol/L Chloride 102 (98-107) mmol/L Carbon Dioxide 22 (22-30) mmol/L Anion Gap 13 mmol/L BUN 11 (7-17) mg/dL Creatinine 0.77 (0.52-1.04) mg/dL Est GFR (CKD-EPI)AfAm >90 (>60 ml/min/1.73 sqM) Est GFR (CKD-EPI)NonAf 81 (>60 ml/min/1.73 sqM) Glucose 112 H (74-99) mg/dL Calcium 10.0 (8.4-10.2) mg/dL Total Bilirubin 0.6 (0.2-1.3) mg/dL AST 20 (14-36) U/L ALT 20 (4-34) U/L Alkaline Phosphatase 80 (38-126) U/L Total Protein 7.2 (6.3-8.2) g/dL Albumin 4.3 (3.5-5.0) g/dL Disposition Clinical Impression: Hypertension Disposition: HOME SELF-CARE Condition: Stable Instructions (If sedation given, give patient instructions): Hypertension (ED) Additional Instructions: Please continue to check your blood pressures. Follow-up with your doctor and return for any new or worsening symptoms Is patient prescribed a controlled substance at d/c from ED?: No Referrals: Everette Moreno MD [Primary Care Provider] - 1-2 days Time of Disposition: 21:25
[2024-07-01 22:06] VITALS: RESP 18
[2024-07-01 22:14] VITALS: BP 129/67; PULSE 78; TEMP 97.4
== END 2024-07-01 22:15 | disposition home or self-care (01) ==
LOC: EC 18:14
DX: I10 Essential (primary) hypertension (principal); Z86.73 Personal history of transient ischemic attack (TIA), and cerebral infarction without residual deficits; Z88.5 Allergy status to narcotic agent
CPT/HCPCS: 36415; 80053; 85025; 99283

== ENCOUNTER 2024-07-04 12:00 | Emergency (ER) | payer MEDICARE, OTHER ==
--- NOTE | 2024-07-04 12:22 | ED ---
General Adult HPI - General Chief complaint: Neuro Symptoms/Deficit Stated complaint: Stroke Time Seen by Provider: 07/04/24 12:05 Source: patient, EMS, RN notes reviewed, old records reviewed Mode of arrival: EMS - History of Present Illness Initial comments: This is a 64-year-old female who presents to the emergency department stating that she noticed herself having slurred speech at 1130 and also felt like the left side of her face had decreased sensation. Patient states the facial paresthesia has resolved and her slurred speech is considerably better she still thinks she is slurring her speech a little. Patient denies any numbness weakness in the extremities. Patient Nuys any headache. Patient states she was here 2 weeks ago with an intracranial hemorrhage and was transferred down to [facility]. - Related Data Home Medications Medication Instructions Recorded Confirmed Ergocalciferol [Vitamin D2 (1250 1,250 mcg PO LAL 07/01/24 07/01/24 Mcg = 41666 Iu)] Fluticasone/Umeclidin/Vilanter 1 puff INHALATION RT-DAILY 07/01/24 07/01/24 [Trelegy Ellipta 200-62.5-25] Losartan [Cozaar] 50 mg PO DAILY 07/01/24 07/01/24 hydroCHLOROthiazide [Hydrodiuril] 25 mg PO DAILY 07/01/24 07/01/24 levETIRAcetam [Keppra] 500 mg PO BID 07/01/24 07/01/24 Allergies Allergy/AdvReac Type Severity Reaction Status Date / Time codeine AdvReac Rapid Verified 07/04/24 12:10 Heart Rate/Dizzy/Headache Review of Systems ROS Statement: Those systems with pertinent positive or pertinent negative responses have been documented in the HPI. ROS Other: All systems not noted in ROS Statement are negative. Past Medical History Past Medical History: CVA/TIA Additional Past Medical History / Comment(s): TIA 2010, brain bleed June 18 History of Any Multi-Drug Resistant Organisms: None Reported Past Surgical History: No Surgical Hx Reported Past Psychological History: No Psychological Hx Reported Smoking Status: Never smoker Past Alcohol Use History: None Reported Past Drug Use History: None Reported General Exam - General Exam Comments Initial Comments: GENERAL: Patient is well-developed and well-nourished. Patient is nontoxic and well- hydrated and is in mild distress. ENT: Neck is soft and supple. No significant lymphadenopathy is noted. Oropharynx is clear. Moist mucous membranes. Neck has full range of motion without eliciting any pain. EYES: The sclera were anicteric and conjunctiva were pink and moist. Extraocular movements were intact and pupils were equal round and reactive to light. Eyelids were unremarkable. PULMONARY: Unlabored respirations. Good breath sounds bilaterally. No audible rales rhonc hi or wheezing was noted. CARDIOVASCULAR: There is a regular rate and rhythm without any murmurs gallops or rubs. ABDOMEN: Soft and nontender with normal bowel sounds. SKIN: Skin is clear with no lesions or rashes and otherwise unremarkable. NEUROLOGIC: Patient is alert and oriented x3. Cranial nerves II through XII are grossly intact. Motor and sensory are also intact. Normal speech, volume and content. Symmetrical smile. Patient has an NIH of 1 MUSCULOSKELETAL: Normal extremities with adequate strength and full range of motion. LYMPHATICS: No significant lymphadenopathy is noted PSYCHIATRIC: Normal psychiatric evaluation. Course Vital Signs 07/04/24 12:02 Pulse Rate 108 H Respiratory 18 Rate Blood Pressure 146/84 O2 Sat by Pulse 97 Oximetry Medical Decision Making - Medical Decision Making EKG is interpreted by myself. EKG shows a sinus rhythm at 86 bpm TN interval 156 QRS is 108 QT interval 370 QTc is 414. Patient's EKG shows no ST segment elevation or depression Was pt. sent in by a medical professional or institution (EMILEE Woodall, BI CONSULTANT, urgent c are, hospital, or residential...) When possible be specific @ -No Did you speak to anyone other than the patient for history (EMS, parent, family, police, friend...)? What history was obtained from this source @ -No Did you review nursing and triage notes (agree or disagree)? Why? @ -I reviewed and agree with nursing and triage notes Were old charts reviewed (outside hosp., previous admission, EMS record, old EKG, old radiological studies, urgent care reports/EKG's, residential records)? Report findings @ -No old charts were reviewed Differential Diagnosis? @ -Differential CVA Ischemic stroke, hemorrhagic stroke, brain tumor, atypical migraine, Wernicke's encephalopathy, seizure, multiple sclerosis, meningitis, encephalitis, hypoglycemia, Guillain-Gallegos, electrolytes disturbance, myasthenia gravis.... This is not meant to be an all-inclusive list EKG interpreted by me (3pts min.). @ -As above X-rays interpreted by me (1pt min.). @ -None done CT interpreted by me (1pt min.). @ -CVA showed an area of acute hemorrhage in the right frontal lobe less than it was before but there is a suspicion of a possible mass in that area. U/S interpreted by me (1pt. min.). @ -None done What testing was considered but not performed or refused? (CT, X-rays, U/S, labs)? Why? @ -None What meds were considered but not given or refused? Why? @ -None Did you discuss the management of the patient with other professionals (professionals i.e. , PA, BI CONSULTANT, lab, RT, psych nurse, social services coordinator, head end desizing machine operator, teacher, air defense control officer, case packer and sealer)? Give summary @ -No Was smoking cessation discussed for >3mins.? @ -No Was critical care preformed (if so, how long)? @ -35 minutes Were there social determinants of health that impacted care today? How? (Homelessness, low income, unemployed, alcoholism, drug addiction, transportation, low edu. Level, literacy, decrease access to med. care, skilled nursing, rehab)? @ -No Was there de-escalation of care discussed even if they declined (Discuss DNR or withdrawal of care, Hospice)? DNR status @ -No What co-morbidities impacted this encounter? (DM, HTN, Smoking, COPD, CAD, Cancer, CVA, ARF, Chemo, Hep., AIDS, mental health diagnosis, sleep apnea, morbid obesity)? @ -None Was patient admitted / discharged? Hospital course, mention meds given and route, prescriptions, significant lab abnormalities, going to OR and other pertinent info. @ -I spoke with Dr. Catalan and he agreed that the patient did not need a CT angiogram and also agreed that the patient bleed though less probably need to transfer to [facility] so I spoke with Patriciapetros Morris and they agreed to take the transfer Undiagnosed new problem with uncertain prognosis? @ -No Drug Therapy requiring intensive monitoring for toxicity (Heparin, Nitro, Insulin, Cardizem)? @ -No Were any procedures done? @ -No Diagnosis/symptom? @ -Hemorrhagic intracranial hemorrhage Acute, or Chronic, or Acute on Chronic? @ -Acute Uncomplicated (without systemic symptoms) or Complicated (systemic symptoms)? @ -Complicate Side effects of treatment? @ -No Exacerbation, Progression, or Severe Exacerbation? @ -No Poses a threat to life or bodily function? How? (Chest pain, USA, [place], pneumonia, PE, COPD, DKA, ARF, appy, cholecystitis, CVA, Diverticulitis, Homicidal, Suicidal, threat to staff... and all critical care pts) @ -Yes this can enlarge and cause - Lab Data Result diagrams: 07/04/24 12:14 07/04/24 12:14 Lab Results 07/04/24 07/04/24 07/04/24 Range/Units 12:14 12:14 12:14 WBC 6.03 (4.50-10.00) 10*3/uL RBC 4.95 (4.10-5.20) 10*6/uL Hgb 15.5 H (12.0-15.0) g/dL Hct 43.9 (37.2-46.3) % MCV 88.7 (80.0-97.0) fL MCH 31.3 (27.0-32.0) pg MCHC 35.3 (32.0-37.0) g/dL Plt Count 387 (140-440) 10*3/uL MPV 9.3 L (9.5-12.2) fL Immature Gran % (Auto) 0.2 % Neutrophils % 48.4 % Lymphocytes % 34.5 % Monocytes % 14.4 % Eosinophils % 1.3 % Basophils % 1.2 % Immature Gran # 0.01 (0.00-0.04) 10*3/uL Neutrophils # 2.92 (1.80-7.70) 10*3/uL Lymphocytes # 2.08 (0.90-5.00) 10*3/uL Monocytes # 0.87 (0.20-1.00) 10*3/uL Eosinophils # 0.08 (0.04-0.35) 10*3/uL Basophils # 0.07 (0.00-0.10) 10*3/uL PT 11.4 (10.0-12.5) sec INR 1.0 (<1.2) APTT 22.4 (22.0-30.0) sec Sodium 136 L (137-145) mmol/L Potassium 3.6 (3.5-5.1) mmol/L Chloride 101 (98-107) mmol/L Carbon Dioxide 22 (22-30) mmol/L Anion Gap 13 mmol/L BUN 13 (7-17) mg/dL Creatinine 0.89 (0.52-1.04) mg/dL Est GFR (CKD-EPI)AfAm 79 (>60 ml/min/1.73 sqM) Est GFR (CKD-EPI)NonAf 68 (>60 ml/min/1.73 sqM) Glucose 118 H (74-99) mg/dL POC Glucose (mg/dL) (70-110) mg/dL POC Glu Account Strategist ID Calcium 9.8 (8.4-10.2) mg/dL Total Bilirubin 0.8 (0.2-1.3) mg/dL AST 21 (14-36) U/L ALT 20 (4-34) U/L Alkaline Phosphatase 82 (38-126) U/L Creatine Kinase 69 (30-135) U/L Troponin I (0.000-0.034) ng/mL Total Protein 7.2 (6.3-8.2) g/dL Albumin 4.3 (3.5-5.0) g/dL 07/04/24 07/04/24 Range/Units 12:14 12:23 WBC (4.50-10.00) 10*3/uL RBC (4.10-5.20) 10*6/uL Hgb (12.0-15.0) g/dL Hct (37.2-46.3) % MCV (80.0-97.0) fL MCH (27.0-32.0) pg MCHC (32.0-37.0) g/dL Plt Count (140-440) 10*3/uL MPV (9.5-12.2) fL Immature Gran % (Auto) % Neutrophils % % Lymphocytes % % Monocytes % % Eosinophils % % Basophils % % Immature Gran # (0.00-0.04) 10*3/uL Neutrophils # (1.80-7.70) 10*3/uL Lymphocytes # (0.90-5.00) 10*3/uL Monocytes # (0.20-1.00) 10*3/uL Eosinophils # (0.04-0.35) 10*3/uL Basophils # (0.00-0.10) 10*3/uL PT (10.0-12.5) sec INR (<1.2) APTT (22.0-30.0) sec Sodium (137-145) mmol/L Potassium (3.5-5.1) mmol/L Chloride (98-107) mmol/L Carbon Dioxide (22-30) mmol/L Anion Gap mmol/L BUN (7-17) mg/dL Creatinine (0.52-1.04) mg/dL Est GFR (CKD-EPI)AfAm (>60 ml/min/1.73 sqM) Est GFR (CKD-EPI)NonAf (>60 ml/min/1.73 sqM) Glucose (74-99) mg/dL POC Glucose (mg/dL) 114 H (70-110) mg/dL POC Glu Account Strategist ID Katey Carreno Calcium (8.4-10.2) mg/dL Total Bilirubin (0.2-1.3) mg/dL AST (14-36) U/L ALT (4-34) U/L Alkaline Phosphatase (38-126) U/L Creatine Kinase (30-135) U/L Troponin I <0.012 (0.000-0.034) ng/mL Total Protein (6.3-8.2) g/dL Albumin (3.5-5.0) g/dL Disposition Clinical Impression: Intracranial hemorrhage Disposition: OTHER INSTITUTION NOT DEFINED Referrals: Everette Moreno MD [Primary Care Provider] - 1-2 days Time of Disposition: 13:50
[2024-07-04 12:24] LABS: Basophils # (A) 0.07 10*3/uL (0.00-0.10); Basophils % (A) 1.2 %; Eosinophils # (A) 0.08 10*3/uL (0.04-0.35); Eosinophils % (A) 1.3 %; HCT 43.9 % (37.2-46.3); HGB 15.5 g/dL (12.0-15.0); Lymphocytes # (A) 2.08 10*3/uL (0.90-5.00); Lymphocytes % (A) 34.5 %; MCH 31.3 pg (27.0-32.0); MCHC 35.3 g/dL (32.0-37.0); MCV 88.7 fL (80.0-97.0); Mean Platelet Volume 9.3 fL (9.5-12.2); Monocytes # (A) 0.87 10*3/uL (0.20-1.00); Monocytes % (A) 14.4 %; Neutrophils # (A) 2.92 10*3/uL (1.80-7.70); Neutrophils % (A) 48.4 %; Platelet Count 387 10*3/uL (140-440); RBC 4.95 10*6/uL (4.10-5.20); RDW 12.8 % (11.5-14.5); WBC 6.03 10*3/uL (4.50-10.00)
[2024-07-04 12:25] LABS: Glucose,Whole Blood 114 mg/dL (70-110)
[2024-07-04 12:35] LABS: Partial Thromboplastin Time 22.4 sec (22.0-30.0); Prothrombin Time 11.4 sec (10.0-12.5)
[2024-07-04 12:39] LABS: ALT 20 U/L (4-34); AST 21 U/L (14-36); African American GFR (CKD) 79 (>60 ml/min/1.73 sqM); Albumin 4.3 g/dL (3.5-5.0); Alkaline Phosphatase 82 U/L (38-126); Anion Gap 13 mmol/L; Blood Urea Nitrogen 13 mg/dL (7-17); Calcium 9.8 mg/dL (8.4-10.2); Carbon Dioxide 22 mmol/L (22-30); Chloride 101 mmol/L (98-107); Creatine Kinase 69 U/L (30-135); Glucose 118 mg/dL (74-99); Non-African American GFR(CKD) 68 (>60 ml/min/1.73 sqM); Potassium 3.6 mmol/L (3.5-5.1); Sodium 136 mmol/L (137-145); Total Bilirubin 0.8 mg/dL (0.2-1.3); Total Protein 7.2 g/dL (6.3-8.2)
--- NOTE | 2024-07-04 12:41 | CT ---
EXAMINATION TYPE: CT brain wo con CT DLP: 1098.4 mGycm, Automated exposure control for dose reduction was used. DATE OF EXAM: 07/04/2024 12:22 PM COMPARISON: CT brain 06/18/2024, 09/21/2016, CTA head and neck 06/18/2024 CLINICAL INDICATION:Female, 64 years old with history of Neuro deficit, acute, stroke suspected, spee ch change at approx 11:30. pt was here x 2weeks ago for bleed/stroke TECHNIQUE: Brain: Multiple axial CT images of the brain were obtained without IV contrast. . Coronal and sagitta l reformats reviewed. FINDINGS: Brain: Extra-axial spaces: No abnormal extra-axial fluid collections. Anterior falx calcification. Ventricular system: Within normal limits Cerebral parenchyma: There is a 2.2 x 1.4 cm oval heterogenous hyperdense area within the periphery n ear the right frontoparietal junction redemonstrated (series 203, image 35). This region appears less hyperdense when compared to prior exam. There is similar surrounding low density effacement of the p eripheral sulci. Remaining landeros-white junction interfaces preserved. Cerebellum: Unremarkable. Mass effect: No evidence of midline shift. Intracranial vasculature: unremarkable Soft tissues: Normal. Calvarium/osseous structures: No depressed skull fracture. Paranasal sinuses and mastoid air cells: Mastoid air cells are clear. Bilateral maxillary sinus 9 mm mucous retention cysts. The remaining paranasal sinuses are clear. Cerumen within the bilateral exter nal auditory canals. Visualized orbits: Orbital contents are intact. IMPRESSION: Redemonstration of a 2.2 cm area of acute hemorrhage and/or hemorrhagic mass in the peripheral hide puller ior aspect of the right frontal lobe. This region appears less hyperdense when compared to prior exam . There is surrounding edema. No midline shift. Consider further evaluation with MR. Findings communicated to Dr. Pedro Herman MD on 07/04/2024 12:[address] Geovani Rose . [facility], , 07/04/2024 12:39 PM
--- NOTE | 2024-07-04 13:42 | XR ---
EXAMINATION TYPE: XR chest 2V DATE OF EXAM: 07/04/2024 1:37 PM COMPARISON: Chest radiographs from 06/18/2024 TECHNIQUE: XR chest 2V Frontal and lateral views of the chest. CLINICAL INDICATION:Female, 64 years old with history of altered mental status; FINDINGS: Lungs/Pleura: There is no evidence of pleural effusion, focal consolidation, or pneumothorax. Pulmonary vascularity: Unremarkable. Heart/mediastinum: Cardiomediastinal silhouette is enlarged and stable. Musculoskeletal: Multiple level degenerative disc disease changes seen throughout the spine. IMPRESSION: Mild cardiomegaly without acute pulmonary process. [facility], , 07/04/2024 1:40 PM
[2024-07-04 14:28] VITALS: PULSE 89
[2024-07-04 14:33] VITALS: BP 137/75; RESP 16; TEMP 97.5
== END 2024-07-04 14:40 | disposition other institution (70) ==
LOC: EC 12:00
DX: I62.9 Nontraumatic intracranial hemorrhage, unspecified (principal); Z88.5 Allergy status to narcotic agent
CPT/HCPCS: 36415; 70450; 71046; 80053; 82550; 84484; 85025; 85610; 85730; 93005; 99291

== ENCOUNTER 2024-07-29 04:59 | Emergency (ER) | payer MEDICARE, OTHER ==
[2024-07-29 05:06] VITALS: RESP 17; TEMP 98
--- NOTE | 2024-07-29 05:39 | ED ---
General Adult HPI - General Chief complaint: Recheck/Abnormal Lab/Rx Stated complaint: Hypertension Time Seen by Provider: 07/29/24 05:02 Source: patient, RN notes reviewed, old records reviewed Mode of arrival: EMS - History of Present Illness Initial comments: 64-year-old female presenting for evaluation of elevated blood pressure. Patient has diagnosis of hypertension and is currently on hydrochlorothiazide and losartan. She takes these medications in the morning. She is presenting for evaluation of elevated blood pressure on home blood pressure cuff, pressure was in the 170 systolic. Patient had recent intracranial hemorrhage and was seen in this emergency department and transferred for higher level of care. This was treated conservatively without any surgical intervention. She denies headache. Denies focal numbness or weakness. States she did feel somewhat dizzy. - Related Data Home Medications Medication Instructions Recorded Confirmed Ergocalciferol [Vitamin D2 (1250 1,250 mcg PO LAL 07/01/24 07/01/24 Mcg = 88213 Iu)] Fluticasone/Umeclidin/Vilanter 1 puff INHALATION RT-DAILY 07/01/24 07/01/24 [Trelegy Ellipta 200-62.5-25] Losartan [Cozaar] 50 mg PO DAILY 07/01/24 07/01/24 hydroCHLOROthiazide [Hydrodiuril] 25 mg PO DAILY 07/01/24 07/01/24 levETIRAcetam [Keppra] 500 mg PO BID 07/01/24 07/01/24 Allergies Allergy/AdvReac Type Severity Reaction Status Date / Time codeine AdvReac Rapid Verified 07/29/24 05:06 Heart Rate/Dizzy/Headache Review of Systems ROS Statement: Those systems with pertinent positive or pertinent negative responses have been documented in the HPI. ROS Other: All systems not noted in ROS Statement are negative. Past Medical History Past Medical History: CVA/TIA Additional Past Medical History / Comment(s): TIA 2010, brain bleed June 18 History of Any Multi-Drug Resistant Organisms: None Reported Past Surgical History: No Surgical Hx Reported Past Psychological History: No Psychological Hx Reported Smoking Status: Never smoker Past Alcohol Use History: None Reported Past Drug Use History: None Reported General Exam General appearance: alert, in no apparent distress Head exam: Present: atraumatic, normocephalic Eye exam: Present: normal appearance, PERRL Neck exam: Present: normal inspection. Absent: tenderness, meningismus Respiratory exam: Present: normal lung sounds bilaterally. Absent: respiratory distress, wheezes Cardiovascular Exam: Present: regular rate, normal rhythm GI/Abdominal exam: Present: soft. Absent: distended, tenderness, guarding Extremities exam: Present: normal inspection, normal capillary refill Neurological exam: Present: alert, oriented X3, CN II-XII intact, other (NIH of 0). Absent: motor sensory deficit Psychiatric exam: Present: normal affect, normal mood Skin exam: Present: warm, dry, intact. Absent: cyanosis, diaphoretic Course Vital Signs 07/29/24 07/29/24 05:02 06:29 Temperature 98.0 F Pulse Rate 75 65 Respiratory 17 17 Rate Blood Pressure 137/74 139/76 O2 Sat by Pulse 98 98 Oximetry Medical Decision Making - Medical Decision Making Was pt. sent in by a medical professional or institution (EMILEE Woodall, METAL ROASTER, urgent care, hospital, or prison...) When possible be specific @ -No Did you speak to anyone other than the patient for history (EMS, parent, family, police, friend...)? What history was obtained from this source @ -No Did you review nursing and triage notes (agree or disagree)? Why? @ -I reviewed and agree with nursing and triage notes Were old charts reviewed (outside hosp., previous admission, EMS record, old EKG, old radiological studies, urgent care reports/EKG's, prison records)? Report findings @ -No old charts were reviewed Differential Diagnosis hypertensive urgency, hemorrhagic stroke, elevated blood pressure, asymptomatic hypertension EKG interpreted by me (3pts min.). @ -As above X-rays interpreted by me (1pt min.). @ -None done CT interpreted by me (1pt min.). @ -[CT shows persistent hyperdensity without acute hemorrhage, no significant change from prior CT 1 month ago U/S interpreted by me (1pt. min.). @ -None done What testing was considered but not performed or refused? (CT, X-rays, U/S, labs)? Why? @ -None What meds were considered but not given or refused? Why? @ -None Did you discuss the management of the patient with other professionals (professionals i.e. , EMILEE, METAL ROASTER, lab, RT, psych nurse, clinical social worker, pesticide chemist, teacher, international first officer, case management rn)? Give summary @ -No Was smoking cessation discussed for >3mins.? @ -No Was critical care preformed (if so, how long)? @ -No Were there social determinants of health that impacted care today? How? (Homelessness, low income, unemployed, alcoholism, drug addiction, transportation, low edu. Level, literacy, decrease access to med. care, [facility], rehab)? @ -No Was there de-escalation of care discussed even if they declined (Discuss DNR or withdrawal of care, Hospice)? DNR status @ -No What co-morbidities impacted this encounter? (DM, HTN, Smoking, COPD, CAD, Cancer, CVA, ARF, Chemo, Hep., AIDS, mental health diagnosis, sleep apnea, morbid obesity)? @ -Hypertension, intracranial hemorrhage] Was patient admitted / discharged? Hospital course, mention meds given and route, prescriptions, significant lab abnormalities, going to OR and other pertinent info. @4-year-old female with elevated blood pressure at home. Blood pressure is very mildly elevated in the emergency department. She had recent intracranial hemorrhage, head CT was performed which showed persistent hyperdensity without acute change from prior. Patient does have good follow-up with neurosurgery regarding this persistent finding. She will continue to monitor her blood pressure and return as needed to the emergency department. Undiagnosed new problem with uncertain prognosis? @ -No Drug Therapy requiring intensive monitoring for toxicity (Heparin, Nitro, Insulin, Cardizem)? @ -No Were any procedures done? @ -No Diagnosis/symptom? @ -Hypertension Acute, or Chronic, or Acute on Chronic? @ -Chronic Uncomplicated (without systemic symptoms) or Complicated (systemic symptoms)? @ -Default Side effects of treatment? @ -No Exacerbation, Progression, or Severe Exacerbation? @ -No Poses a threat to life or bodily function? How? (Chest pain, USA, [place], pneumonia, PE, COPD, DKA, ARF, appy, cholecystitis, CVA, Diverticulitis, Homicidal, Suicidal, threat to staff... and all critical care pts) @ -[Moderate risk Disposition Clinical Impression: Hypertension Disposition: HOME SELF-CARE Condition: Fair Instructions (If sedation given, give patient instructions): Hypertension (ED) Additional Instructions: Please continue to monitor your blood pressure, follow closely with your primary care provider and your neurosurgeon. Is patient prescribed a controlled substance at d/c from ED?: No Referrals: Everette Moreno MD [Primary Care Provider] - 1-2 days Time of Disposition: 06:37
--- NOTE | 2024-07-29 06:33 | CT ---
EXAMINATION TYPE: CT brain wo con DATE OF EXAM: 07/29/2024 COMPARISON: CT brain July 04, 2024 and older studies. CLINICAL INDICATION: Female, 64 years old with history of HTN recent ICH, TECHNIQUE: CT scan of the head is performed without contrast. Automated Exposure Control for Dose Reduction was Utilized. FINDINGS: There is persistent heterogeneous hyperdense focus peripheral posterior right frontal lobe measuring 1.5 cm on current study with some surrounding hypodensity extending inferiorly that is james lar in size to most recent CT. No new acute intracranial hemorrhage or midline shift. Ventricles and sulci within normal limits in size for patient's age. Wild-white matter differentiation otherwise regina ntained. Soft tissue density consistent with cerumen is redemonstrated in the bilateral external sandy tory canals . The globes are intact and the visualized sinuses are clear. IMPRESSION: Persistent 1.6 cm peripheral right hyperdense focus with less prominent surrounding hypod ensity could reflect focal acute/subacute hemorrhage or hemorrhagic mass. Clinical correlation and fo llow-up advised. No new acute intracranial hemorrhage or midline shift. [facility], , 07/29/2024 6:31 AM
[2024-07-29 07:03] VITALS: BP 145/70; PULSE 62
== END 2024-07-29 07:03 | disposition home or self-care (01) ==
LOC: EC 04:59
DX: I10 Essential (primary) hypertension (principal); R58 Hemorrhage, not elsewhere classified; Z88.5 Allergy status to narcotic agent
CPT/HCPCS: 70450; 99284

== ENCOUNTER → 2024-08-22 | Outpatient (CLI) | payer MEDICARE, OTHER ==
--- NOTE | 2024-08-27 23:34 | MR ---
EXAMINATION TYPE: MR brain wo/w con DATE OF EXAM: 08/22/2024 4:50 PM COMPARISON: CT brain 07/29/2024, MRI brain 06/20/2024 CLINICAL INDICATION: Female, 64 years old with history of R56.9 UNSPECIFIED CONVULSIONS I62.9, f/u to brain bleed June 18 2024 TECHNIQUE: Multiplanar, multiecho imaging on a 3.0 Vicky magnet is performed through the brain. Stud y is performed within 24 hours of arrival to the hospital.Multiplanar, multiecho imaging on a 3.0 Sunita la magnet is performed through the knee. IV Contrast: 10.5 mL Gadobutrol (None, if empty) FINDINGS: The craniovertebral junction is normal. The pituitary is normal. Optic chiasm is normal Diffusion-weighted imaging is performed. No abnormal hyperintensity is present to suggest an acute i ntracranial infarct or acute ischemic change. There is a complex heterogenous area within the right frontal parietal lateral brain measuring 1.9 x 2.0 x 2.1 cm. Example image 501 image 24, series 201 image 24. This is intra-axial. Significant mass effect or vasogenic edema is not identified. This complex area is very heterogenous and clear enhance ment is not identified. This may have some blooming susceptibility on gradient imaging. Additionally there may be some susceptibility artifact along the anterior falx this appears to correlate with a ca lcification along the falx and There are scattered punctate areas of hyperintensity on T2 and Inversion Recovery weighted sequences which are non-specific but can be related to microvascular ischemic changes. Ventricles and sulci are appropriate for the patient age. There is a small retention cyst within the medial right maxillary sinus. Small retention cysts within the posterior lateral right maxillary sinus IMPRESSION: 1. Complex heterogenous signal within the right frontal parietal region can be compatible with the pa tient's prior hemorrhage no increase in size. No new findings. [facility], , 08/27/2024 11:31 PM
== END | disposition home or self-care (01) ==
LOC: RADMRIMAIN 15:54
PROVIDERS: ATTEND Psychiatry & Neurology Neurology
DX: R56.9 Unspecified convulsions (principal); I62.9 Nontraumatic intracranial hemorrhage, unspecified
CPT/HCPCS: 70553; A9585